=== PATIENT | male | born 1950 | race Caucasian/White ===

== ENCOUNTER 2018-12-06 21:57 | Emergency (ER) | payer MEDICARE, BC ==
[~2018-12-06] VITALS: Ht 175.3 cm; Wt 106.6 kg
[~2018-12-06 21:57] MED LIST: ASPI81CH PO; ATOR20 PO; METO25 PO
[2018-12-06] MEDS ORDERED: FISH OIL 1,001000 MG PO (22:32)
[2018-12-06] MEDS ORDERED: Coq-1030 MG PO (22:33)
[2018-12-06] MEDS ORDERED: D3-5050000 UNIT PO (22:33)
[2018-12-06] MEDS ORDERED: DAILY MULTIVIT1 EAC2 PO (22:34)
[2019-02-20] MEDS ORDERED: Lopressor 25 mg25 MG (12:16)
[2019-02-20] MEDS ORDERED: Aspir 8181 MG PO (12:17)
[2019-02-20] MEDS ORDERED: Multiple Vitam1 EAC1 PO (12:17)
[2019-02-20] MEDS ORDERED: JOINT SUPPORT1 EACH PO (12:18)
[2019-02-20] MEDS ORDERED: FISH OIL 1,2001 EACH PO (12:18)
[2019-02-20] MEDS ORDERED: Crestor20 MG PO (12:19)
[2019-02-20] MEDS ORDERED: CO Q10100 MG PO (12:19)
== END 2018-12-06 23:05 | disposition home or self-care (01) ==
LOC: ER 21:57
DX: H53.9 Unspecified visual disturbance (principal); Z79.899 Other long term (current) drug therapy; Z79.82 Long term (current) use of aspirin; I10 Essential (primary) hypertension; I25.2 Old myocardial infarction
CPT/HCPCS: 99283

== ENCOUNTER 2019-02-24 08:49 | Day surgery (SDC) | payer MEDICARE, BC ==
[~2019-02-24] VITALS: Ht 175.3 cm; Wt 102.9 kg
[~2019-02-24 08:49] MED LIST changes: +Aspir 8181 MG PO; +CO Q10100 MG PO; +Coq-1030 MG PO; +Crestor20 MG PO; +D3-5050000 UNIT PO; +DAILY MULTIVIT1 EAC2 PO; +FISH OIL 1,001000 MG PO; +FISH OIL 1,2001 EACH PO; +JOINT SUPPORT1 EACH PO; +Lopressor 25 mg25 MG; +Multiple Vitam1 EAC1 PO
== END 2019-02-24 11:48 | disposition home or self-care (01) ==
LOC: ORSCSDS 08:49
PROVIDERS: Internal Medicine Gastroenterology
PROC: 0DBL8ZX Excision of Transverse Colon, Via Natural or Artificial Opening Endoscopic, Diagnostic (ICD-10-PCS; principal; 2019-02-24 10:15)
PROC: 0DBM8ZX Excision of Descending Colon, Via Natural or Artificial Opening Endoscopic, Diagnostic (ICD-10-PCS; principal; 2019-02-24 10:15)
PROC: 0DBP8ZX Excision of Rectum, Via Natural or Artificial Opening Endoscopic, Diagnostic (ICD-10-PCS; principal; 2019-02-24 10:15)
PROC: 0DBK8ZX Excision of Ascending Colon, Via Natural or Artificial Opening Endoscopic, Diagnostic (ICD-10-PCS; principal; 2019-02-24 10:15)
DX: Z12.11 Encounter for screening for malignant neoplasm of colon (principal); D12.2 Benign neoplasm of ascending colon; D12.3 Benign neoplasm of transverse colon; K63.5 Polyp of colon; K62.1 Rectal polyp; K64.8 Other hemorrhoids; I10 Essential (primary) hypertension; Z79.82 Long term (current) use of aspirin; Z79.899 Other long term (current) drug therapy
CPT/HCPCS: 88305; J2704; J7120

== ENCOUNTER 2019-03-15 06:04 | Day surgery (SDC) | payer MEDICARE, BC ==
[~2019-03-15] VITALS: Ht 175.3 cm; Wt 105.2 kg
--- NOTE | 2019-03-15 07:02 | NUR ---
03/15/19 0702 Yulisa Chaney TWO IV ATTEMPTS ON LEFT HAND, BOTH INFILTRATED. PT TOLERATED IV ATTEMPTS WELL
== END 2019-03-15 08:12 | disposition home or self-care (01) ==
LOC: ORSCSDS 06:04
PROVIDERS: Ophthalmology
PROC: 08RK3JZ Replacement of Left Lens with Synthetic Substitute, Percutaneous Approach (ICD-10-PCS; principal; 2019-03-15 07:30)
DX: H25.12 Age-related nuclear cataract, left eye (principal); I10 Essential (primary) hypertension; E78.5 Hyperlipidemia, unspecified; Z79.899 Other long term (current) drug therapy; Z79.82 Long term (current) use of aspirin
CPT/HCPCS: J2001; J2250; J3010; J3301; J7040; J7120; V2632

== ENCOUNTER 2019-04-05 08:15 | Day surgery (SDC) | payer MEDICARE, BC ==
[~2019-04-05] VITALS: Ht 175.3 cm; Wt 105.4 kg
[~2019-04-05 08:15] MED LIST changes: +VITAMIN D5000 UNI1 PO
--- NOTE | 2019-04-05 09:02 | NUR ---
04/05/19 0902 Yulisa Chaney CALL LIGHT WITHIN REACH. FAMILY AT BEDSIDE
== END 2019-04-05 10:40 | disposition home or self-care (01) ==
LOC: ORSCSDS 08:15
PROVIDERS: Ophthalmology
PROC: 08RJ3JZ Replacement of Right Lens with Synthetic Substitute, Percutaneous Approach (ICD-10-PCS; principal; 2019-04-05 09:30)
DX: H25.11 Age-related nuclear cataract, right eye (principal); I10 Essential (primary) hypertension; I25.10 Atherosclerotic heart disease of native coronary artery without angina pectoris; I25.2 Old myocardial infarction; Z79.899 Other long term (current) drug therapy
CPT/HCPCS: J2001; J2250; J3010; J3301; J7040; V2632

== ENCOUNTER 2019-08-13 18:27 | Emergency (ER) | payer MEDICARE, BC ==
[~2019-08-13] VITALS: Ht 175.3 cm; Wt 108.0 kg
[2019-08-13 18:53] LABS: BASOPHILS ABSOLUTE AUTO 0.07 K/mm3 (0.00-0.23); BASOPHILS PERCENT AUTO 1 % (0-2); EOSINOPHILS ABSOLUTE AUTO 0.41 K/mm3 (0.00-0.68); EOSINOPHILS PERCENT AUTO 4 % (0-6); Hematocrit 45.3 % (37.0-53.0); Hemoglobin 14.9 g/dL (13.5-17.5); IMMATURE GRAN ABSOLUTE AUTO 0.01 K/mm3 (0.00-0.10); IMMATURE GRAN PERCENT AUTO 0 % (0-1); LYMPHOCYTES ABSOLUTE AUTO 3.07 K/mm3 (0.84-5.20); LYMPHOCYTES PERCENT AUTO 32 % (21-46); MONOCYTES ABSOLUTE AUTO 1.12 K/mm3 (0.16-1.47); MONOCYTES PERCENT AUTO 12 % (4-13); Mean Corpuscular HGB 29.9 pg (26.0-34.0); Mean Corpuscular HGB Conc 32.9 g/dL (31.5-36.5); Mean Corpuscular Volume 91 fL (80-100); Mean Platelet Volume 11.4 fL (9.1-12.4); NEUTROPHILS ABSOLUTE AUTO 5.05 K/mm3 (1.96-9.15); NEUTROPHILS PERCENT AUTO 52 % (41-73); Platelet Count 236 K/mm3 (150-400); RDW Coefficient Variation 12.5 % (11.7-14.2); RDW Standard Deviation 40.9 fL (35.1-46.3); Red Blood Cell Count 4.98 M/mm3 (4.30-5.90); White Blood Cell Count 9.73 K/mm3 (4.00-11.30)
[2019-08-13 19:16] LABS: Alanine Aminotransfer (ALT/SGP 38 U/L (12-78); Alk Phos 56 U/L (50-136); Anion Gap 5 mmol/L (6-16); Aspartate Aminotrans (AST/SGOT 26 U/L (12-37); Bilirubin, Total 0.3 mg/dL (0.1-1.0); Blood Urea Nitrogen 21 mg/dL (8-24); Bun/Creatinine Ratio 32.2 (12.0-20.0); CO2, Blood 28 mmol/L (21-32); Calcium, Blood 9.5 mg/dL (8.5-10.1); Chloride, Blood 105 mmol/L (98-108); Creatinine, Blood 0.65 mg/dL (0.60-1.20); Globulin, Blood 3.9 g/dL (2.2-4.0); Glomerular Filtration Rate >60 (60-); Glucose, Blood 126 mg/dL (70-99); Potassium, Blood 4.1 mmol/L (3.5-5.5); Sodium, Blood 138 mmol/L (136-145); Total Protein, Blood 7.9 g/dL (6.4-8.2); Troponin I <0.015 ng/mL (0.000-0.040)
[2019-08-13] MEDS ORDERED: Prilosec Otc20 MG PO (19:50)
== END 2019-08-13 20:08 | disposition home or self-care (01) ==
LOC: ER 18:27
PROVIDERS: Nurse Practitioner
DX: R07.89 Other chest pain (principal); I10 Essential (primary) hypertension; I25.2 Old myocardial infarction; Z79.899 Other long term (current) drug therapy; Z79.82 Long term (current) use of aspirin
CPT/HCPCS: 36415; 71046; 80053; 84484; 85025; 93005; 93010; 99285-25

== ENCOUNTER 2022-08-14 08:03 | Day surgery (SDC) | payer MEDICARE, BC ==
[~2022-08-14] VITALS: Ht 175.3 cm; Wt 106.8 kg
[~2022-08-14 08:03] MED LIST changes: +Prilosec Otc20 MG PO
== END 2022-08-14 10:45 | disposition home or self-care (01) ==
LOC: ORSCSDS 08:03
PROVIDERS: Internal Medicine Gastroenterology
PROC: 0DJD8ZZ Inspection of Lower Intestinal Tract, Via Natural or Artificial Opening Endoscopic (ICD-10-PCS; principal; 2022-08-14 09:30)
DX: Z12.11 Encounter for screening for malignant neoplasm of colon (principal); Z86.010 Personal history of colon polyps; K64.4 Residual hemorrhoidal skin tags; K64.8 Other hemorrhoids; Z79.82 Long term (current) use of aspirin; Z79.899 Other long term (current) drug therapy
CPT/HCPCS: 82947; J2250; J2704; J7120

== ENCOUNTER 2025-01-18 01:34 | Emergency (ER) | payer MEDICARE, BC ==
[~2025-01-18] VITALS: Ht 175.3 cm; Wt 108.9 kg
[2025-01-18 02:26] LABS: BASOPHILS ABSOLUTE AUTO 0.07 K/mm3 (0.00-0.23); BASOPHILS PERCENT AUTO 1 % (0-2); EOSINOPHILS ABSOLUTE AUTO 0.97 K/mm3 (0.00-0.68); EOSINOPHILS PERCENT AUTO 10 % (0-6); Hematocrit 40.0 % (37.0-53.0); Hemoglobin 13.4 g/dL (13.5-17.5); IMMATURE GRAN ABSOLUTE AUTO 0.02 K/mm3 (0.00-0.10); IMMATURE GRAN PERCENT AUTO 0 % (0-1); LYMPHOCYTES ABSOLUTE AUTO 2.55 K/mm3 (0.84-5.20); LYMPHOCYTES PERCENT AUTO 26 % (21-46); MONOCYTES ABSOLUTE AUTO 0.92 K/mm3 (0.16-1.47); MONOCYTES PERCENT AUTO 9 % (4-13); Mean Corpuscular HGB Conc 33.5 g/dL (31.5-36.5); Mean Corpuscular Volume 88 fL (80-100); NEUTROPHILS ABSOLUTE AUTO 5.34 K/mm3 (1.96-9.15); NEUTROPHILS PERCENT AUTO 54 % (41-73); NRBC ABSOLUTE 0.00 K/mm3 (0.00-0.02); NRBC Auto 0.0 /100 WBC (0.0-0.2); Platelet Count 233 K/mm3 (150-400); RDW Coefficient Variation 13.0 % (11.7-14.2); RDW Standard Deviation 42.1 fL (35.1-46.3)
[2025-01-18] MEDS ORDERED: FentaNYL Citrate 50 MCG/ML 2 ML Injection IV PRN (02:35)
[2025-01-18] MEDS ORDERED: Ondansetron HCl 2 MG / ML 2ML Vial IV ONE (02:35)
[2025-01-18] MEDS ORDERED: NS 1,000 ML IV SCH (02:35)
[2025-01-18 02:44] LABS: Alanine Aminotransfer (ALT/SGP 28.0 U/L (12-78); Albumin, Blood 3.5 g/dL (3.4-5.0); Albumin/Globulin Ratio 1.1 (0.8-1.8); Anion Gap 11.0 mmol/L (3-11); Aspartate Aminotrans (AST/SGOT 17.0 U/L (12-37); Bilirubin, Total 0.3 mg/dL (0.1-1.0); Blood Urea Nitrogen 17.0 mg/dL (8-24); CO2, Blood 25.0 mmol/L (21-32); Calcium, Blood 9.0 mg/dL (8.5-10.1); Chloride, Blood 107.0 mmol/L (98-108); Creatinine, Blood 0.8 mg/dL (0.60-1.20); Globulin, Blood 3.3 g/dL (2.2-4.0); Glucose, Blood 147.0 mg/dL (70-99); Potassium, Blood 3.7 mmol/L (3.5-5.5); Sodium, Blood 139.0 mmol/L (136-145); Total Protein, Blood 6.8 g/dL (6.4-8.2)
[2025-01-18 03:38] LABS: Source, Urine Clean Catch
[2025-01-18] MEDS ORDERED: Metoclopramide HCl 5MG / ML 2ML Vial IV ONE (04:15)
[2025-01-18 04:23] LABS: Bilirubin, Urine Neg (Neg); Color, Urine Yellow (P-Yellow); Glucose Qualitative, Urine Neg (Neg); Ketones, Urine Neg (Neg); Leukocyte Esterase, Urine Neg (Neg); Protein, Urine 1+ (Neg); Specific Gravity, Urine 1.020 (1.003-1.022); Urobilinogen, Urine NORM (Normal)
[2025-01-18 04:25] LABS: Red Blood Cells, Urine TNTC /hpf (0-2); White Blood Cells, Urine 0-2 /hpf (0-5)
[2025-01-18] MEDS ORDERED: RX Prepack 6 Tabs Oxycodone 5mg UD ONE (05:40)
[2025-01-18] MEDS ORDERED: Ketorolac Tromethamine 15mg Vial IV ONE (05:40)
[2025-01-18 06:01] VITALS: BP 138/72
== END 2025-01-18 06:01 | disposition home or self-care (01) ==
LOC: ER 01:34
PROVIDERS: Emergency Medicine
DX: N13.2 Hydronephrosis with renal and ureteral calculous obstruction (principal); E86.0 Dehydration; I10 Essential (primary) hypertension; I25.10 Atherosclerotic heart disease of native coronary artery without angina pectoris; E78.5 Hyperlipidemia, unspecified; K21.9 Gastro-esophageal reflux disease without esophagitis; Z79.82 Long term (current) use of aspirin; Z79.899 Other long term (current) drug therapy
CPT/HCPCS: 74177; 80053; 81001; 83690; 85025; 93005; 93010; 96374-59; 96375; 99284-25; A9270; J1885; J2405; J2765; J3010; J7030; Q9967